=== PATIENT | female | born 1990 | race Caucasian/White ===

== ENCOUNTER 2020-01-15 12:42 | Outpatient (CLI) | payer MEDICAID ==
[~2020-01-15] VITALS: Ht 162.6 cm; Wt 72.7 kg
--- NOTE | 2020-01-15 12:35 | NUR ---
Patient arrives ambulatory with FOB with complaints of nausea and vomiting x3 days, decreased movement and cramping. Patient denies ROM or vaginal bleeding. Denies contractions. Patient changes into gown ,EFM explained and placed. VS obtained. SVE per Virgil Wright RN FT/alex/. Patient repositioned WL and updated on plan of care. Assessment completed. Dr. Mejia notified, see physician notification. Patient updated on plan of care, see EMAR.
[2020-01-15 12:44] VITALS: BP 127/78; PULSE 91; TEMP 97.9
[2020-01-15] MEDS ORDERED: PAXIL 20MG20 MG PO (12:51)
[2020-01-15 13:00] VITALS: BP 127/78; PULSE 97; TEMP 97.4
--- NOTE | 2020-01-15 13:15 | NUR ---
Patient able to eat crackers and water, reports nausea is much improved. Chatting on phone. Denies contractions. See physician notification. Patient updated on plan of care.
[2020-01-15 14:03] VITALS: BP 104/68; PULSE 74
--- NOTE | 2020-01-15 14:09 | NUR ---
Patient given dc instructions. Reviewed labor precautions, kick counts and the importance of following up in the office. Patient verbalizes understanding. Paperwork given and patient leaves ambulatory.
[2020-01-15 14:19] LABS: TRICYCLIC ANTIDEPRESS URINE NEGATIVE
== END 2020-01-15 14:10 | disposition home or self-care (01) ==
LOC: LDR 12:42 → LDRO 12:42 → LDR 12:43 → LDRO 14:10
PROVIDERS: Obstetrics & Gynecology
DX: O36.8130 Decreased fetal movements, third trimester, not applicable or unspecified (principal); Z3A.34 34 weeks gestation of pregnancy
CPT/HCPCS: OP

== ENCOUNTER 2020-02-13 18:04 | Inpatient (IN) | payer OTHER, MEDICAID ==
[~2020-02-13] VITALS: Ht 162.6 cm; Wt 77.3 kg
[2020-02-13] VITALS (16 sets, daily range): BP systolic 123–153; BP diastolic 57–78; PULSE 44–73; TEMP 98.4–98.6
--- NOTE | 2020-02-13 18:00 | NUR ---
[id number] 38.4 week GBS + with known positive drug screen for marijuana to unit with complaints of SROM at 1700 and irregular contractions at 1745. Denies vaginal bleeding and reports GFM. Assisted into gown placed on EFM. Amnitest +, SVE /-2. Updated Dr. Alfred. Orders to admit patient see MD notification. Reported off to [place] [facility].
[~2020-02-13 18:04] MED LIST: PAXIL 20MG20 MG PO
--- NOTE | 2020-02-13 19:00 | NUR ---
Pt states "the contractions are starting to pecan picker and get stronger, can we wait a little bit on the pitocin?"
[2020-02-13 19:13] LABS: BASO % 0.2 % (0.0-2.0); EOS # 0.2 (0.0-0.7); EOS % 1.8 % (0-4.0); GRAN # 6.9 (1.4-6.5); GRAN % 69.4 % (42.2-75.2); HEMOGLOBIN 10.3 g/dl (12.5-16.0); LYMPH # 1.9 (1.2-3.4); LYMPH % 19.4 % (20.0-51.0); MEAN CELL VOLUME 92 fl (80.0-100.0); MEAN CORPUSCULAR HEMOGLOBIN 31 pg (27.0-31.0); MEAN CORPUSCULAR HGB CONC 33 g/dl (33.0-37.0); MEAN PLATELET VOLUME 10.1 fl (7.4-10.4); MONO # 0.9 (0.1-0.6); MONO % 8.8 % (1.7-9.3); PLATELET COUNT 208 K/mm3 (130-400); RED BLOOD COUNT 3.37 M/mm3 (4.10-5.30); REDCELL DISTRIBUTION WIDTH-CV 13.1 % (11.5-14.5)
[2020-02-13 19:24] LABS: TRICYCLIC ANTIDEPRESS URINE NEGATIVE
--- NOTE | 2020-02-13 20:00 | NUR ---
SVE with no changes noted Pitocin gtt started after explanation to pt.
--- NOTE | 2020-02-13 20:40 | NUR ---
pt requesting epidural, anesthesia notified.
--- NOTE | 2020-02-13 21:00 | NUR ---
Pt reports "the contractions are getting stronger, I'm almost ready for an epidural." IV fluids to bolus rate
--- NOTE | 2020-02-13 21:10 | NUR ---
To edge of bed for epidural placement. See anesthesia record.
--- NOTE | 2020-02-13 22:05 | NUR ---
FHT's with recurrent early decelerations to 80's, SVE as noted, sims catheter placed.
--- NOTE | 2020-02-13 22:15 | NUR ---
to W left for recurrent early decels.
--- NOTE | 2020-02-13 22:21 | NUR ---
FHT's continue with decelerations to 70's-80's, SVE Complete +1. Pitcocin off. 2224 Dr Alfred called to come for delivery. [place] catheter dc'd. Nsy and anesthesia notified. 2234 Pt set up and prepped for delivery, FHT's with decels to 70's return to baseline after end of palpated ctx. Vertex descended without maternal effort. 224 Dr Alfred into room. [address] Alfred.
--- NOTE | 2020-02-13 22:48 | NUR ---
Placenta delivers spont and intact with 3 vessell cord. Pitocin gtt to bolus rate. Perineal inspection reveals no lacerations. Pericare performed, bed together.
[2020-02-14] VITALS: BP 137/65
--- NOTE | 2020-02-14 01:45 | NUR ---
Up to bathroom, voids good amount, performs own pericare. To room via wheelchair.
[2020-02-14] MEDS ORDERED: IBU600 MG PO (08:26)
[2020-02-14 09:25] VITALS: BP 107/58; PULSE 48; TEMP 98.1
--- NOTE | 2020-02-14 15:48 | NUR ---
Envelope Machine Operator consulted for the patient due to insuffient PNC and positive UDS for benzodizepines, opiates, and cannabinoids. The patient's nurse reports the patient is appropriate with the baby. The patient has two other children at home. LAKSHMI met with the patient and the patient's . The patient has all the supplies she needs. The patient has two other childen at home a 9 year old and a 4 year old at home. The patient is awaiting EBT food benefits to start and will apply for WIC benefits. The patient has a history of anxiety and depression. The patient goes to [facility] for talk therapy and for medication management. The patient takes Paxil for anxiety. 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 The patient knows the sign and will contact her talk therapist if she begins to show signs. LAKSHMI addressed the THC use. The patient reports she used it for nausea. LAKSHMI addressed the Opiate use. The patient reports she took .5 a pill for back pain before admission. She states she does not have a presription and got it from a friend. LAKSHMI addressed the Benzodizepine use. The patient states that the Paxil may have triggered that positive result. The patient declined any treatment for drugs. The patient's baby on abstinent scoring protocol. CPS report was made. Intake # [id number]. LAKSHMI collaborated the above information with the patient's nurse.
[2020-02-14 16:38] VITALS: BP 126/76; PULSE 64; TEMP 98
[2020-02-14 19:20] VITALS: BP 140/70; PULSE 52; TEMP 98.4
--- NOTE | 2020-02-15 09:00 | NUR ---
Rests in bed, alert. 0915 Ibuprofen 600 mg given as ordered for discomfort.
[2020-02-15 09:15] VITALS: BP 131/69; PULSE 58; TEMP 98
--- NOTE | 2020-02-15 13:00 | NUR ---
Rests in bed, alert. Request pain medication. Percocet 5/325 mg one given per request and as ordered.
[2020-02-15 16:45] VITALS: BP 131/70; PULSE 54; TEMP 97.9
--- NOTE | 2020-02-15 18:30 | NUR ---
Discharged to border status. Baby to nursery via crib. Patient states will be going home tonight to be with other children.
--- NOTE | 2020-02-17 13:38 | NUR ---
The patient's baby boy discharged home this day. SW contacted the patient to inquire about any needs. The patient has no concerns at this time. Everyone got home safe. There are no additional needs at this time.
== END 2020-02-15 18:30 | disposition home or self-care (01) | DRG 806 ==
LOC: LDRO 18:04 → LDR 18:05 → LDRO 19:05 → OB 19:06 → LDR 19:06 → OB 02-14 02:00
PROVIDERS: Obstetrics & Gynecology; ADMIT Obstetrics & Gynecology
PROC: 10E0XZZ Delivery of Products of Conception, External Approach (ICD-10-PCS; principal; 2020-02-13)
DX: O99.02 Anemia complicating childbirth (principal); O99.324 Drug use complicating childbirth; Z37.0 Single live birth; D64.9 Anemia, unspecified; O99.344 Other mental disorders complicating childbirth; F41.9 Anxiety disorder, unspecified; O99.824 Streptococcus B carrier state complicating childbirth; F12.90 Cannabis use, unspecified, uncomplicated; F13.90 Sedative, hypnotic, or anxiolytic use, unspecified, uncomplicated; F11.90 Opioid use, unspecified, uncomplicated; Z3A.38 38 weeks gestation of pregnancy
CPT/HCPCS: J2540; J2590; J7120

== ENCOUNTER 2020-04-02 10:38 | Emergency (ER) | payer MEDICAID ==
[~2020-04-02] VITALS: Ht 162.6 cm; Wt 68.2 kg
[~2020-04-02 10:38] MED LIST changes: +IBU600 MG PO
[2020-04-02 10:48] VITALS: BP 117/78; TEMP 96.7
[2020-04-02] MEDS ORDERED: FLEXERIL 1010 MG/TAB PO (11:09)
[2020-04-02] MEDS ORDERED: MEDROL 4MG DOSPA4 MG PO (11:09)
[2020-04-02] MEDS ORDERED: NORCO 325 MG-51 TAB PO (11:09)
[2020-04-02 11:30] VITALS: PULSE 87
== END 2020-04-02 11:35 | disposition home or self-care (01) ==
LOC: COL.ER 10:38
DX: M54.32 Sciatica, left side (principal); F17.210 Nicotine dependence, cigarettes, uncomplicated
CPT/HCPCS: J1885

== ENCOUNTER 2020-10-06 16:47 | Emergency (ER) | payer MEDICAID ==
[~2020-10-06] VITALS: Ht 162.6 cm; Wt 68.2 kg
[~2020-10-06 16:47] MED LIST changes: +FLEXERIL 1010 MG/TAB PO; +MEDROL 4MG DOSPA4 MG PO; +NORCO 325 MG-51 TAB PO
[2020-10-06 17:06] VITALS: TEMP 98.2
[2020-10-06] MEDS ORDERED: PEN-VEE K500 MG PO (17:52)
[2020-10-06 18:18] VITALS: BP 128/88; PULSE 82
== END 2020-10-06 18:20 | disposition home or self-care (01) ==
LOC: COL.ER 16:47
DX: K08.89 Other specified disorders of teeth and supporting structures (principal); M54.32 Sciatica, left side